=== PATIENT | female | born 1955 | race Caucasian/White ===

== ENCOUNTER 2018-01-22 06:26 | Day surgery (SDC) | payer BC ==
[2018-01-21 11:08] VITALS: BMI 23.5
[~2018-01-22 06:26] MED LIST: EPINEPHrine 0.3 MG in Ophthalmic Irrigation Solution 500 ML FS SCH
[2018-01-22] MEDS ORDERED: Cyclopentolate 1% Opth Drop 2 ML BOT ONE (06:45)
[2018-01-22] MEDS ORDERED: Phenylephrine 2.5% Ophth Soln 5 ML BOT ONE (06:45)
[2018-01-22] MEDS ORDERED: Fentanyl 100 MCG/2 ML VIAL ONE (08:00)
[2018-01-22] MEDS ORDERED: PROPOFOL 20 ML ONE (08:00)
[2018-01-22] MEDS ORDERED: Midazolam HCl 2 mg/2 ml Vial ONE (08:00)
[2018-01-22] MEDS ORDERED: Acetaminophen 500 MG TAB ONE (09:22)
[2018-01-22] MEDS ORDERED: Bupivacaine 0.75% 10 ML AMP ONE (11:49)
[2018-01-22] MEDS ORDERED: Lidocaine 4% PF 5 ML AMP ONE (11:49)
[2018-01-22] MEDS ORDERED: Triamcinolone 40 MG/ML VIAL ONE (11:49)
[2018-01-22] MEDS ORDERED: Maxitrol 0.1% Opth Oint 3.5 GM TUBE ONE (11:49)
[2018-01-22] MEDS ORDERED: CEFAZOLIN 1 GM VIAL ONE (11:49)
[2018-01-22] MEDS ORDERED: PROPOFOL 200 MG/20 ML VIAL ONE (11:49)
[2018-01-22] MEDS ORDERED: Lidocaine 1% PF 5 ML VIAL ONE ×2 (11:49)
--- NOTE | 2018-01-23 14:30 | OP ---
DATE OF PROCEDURE: 01/22/2018 PREOPERATIVE DIAGNOSIS: Vitreous opacification of right eye. POSTOPERATIVE DIAGNOSIS: Vitreous opacification of right eye. PROCEDURE PERFORMED: Pars plana vitrectomy, membrane peel, right eye. ANESTHESIA: Local monitored anesthesia care. PROCEDURE IN DETAIL: The patient was identified in the preoperative holding area and informed consent for planned surgical procedure on the right eye have been obtained. The patient was transported to the operative suite where appropriate cardiopulmonary monitoring was established. Local anesthesia was obtained using retrobulbar and modified Van Lint lid block using 50:50 mixture of 1% Lidocaine and 0.75% bupivacaine. The patient was prepped and draped in the usual sterile manner for ophthalmic surgery, right eye. Lid speculum was placed in the right eye. The 25-gauge trocars was placed inferotemporally and superonasally. A 25 gauge sclerotomy was created superotemporally. Infusion line was placed inferotemporally and silicone oil was removed. A 25 gauge needle was bent and posterior capsular opacification was dissected and peeled from the back surface of the lens. Sclerotomy was sutured closed with 7-0 Vicryl suture. Conjunctiva was closed with 6-0 plain gut suture. Retrobulbar Kenalog and subjunctival Ancef were placed. Atropine and antibiotic ointment was placed, and the eye was patched and shielded. The patient was taken to the postoperative recovery unit in good condition having suffered no immediate perioperative complications. The patient was instructed to keep patch and eye shield on and avoid lifting or bending, and follow up in the morning with Dr. Garcia. Job ID: [id number] MTDD
== END 2018-01-22 09:40 | disposition home or self-care (01) ==
LOC: SDC 06:26
PROVIDERS: ATTEND Ophthalmology Retina Specialist
DX: H43.311 Vitreous membranes and strands, right eye (principal); F41.9 Anxiety disorder, unspecified
CPT/HCPCS: J0171; J0690; J2001; J2250; J2704; J3010; J3301; J3490

== ENCOUNTER 2018-04-21 13:22 | Outpatient (CLI) | payer BC | END 2018-04-21 13:23 | disposition home or self-care (01) | LOC: BICMAMMO 13:22 | PROVIDERS: ATTEND Physician Assistant | DX: Z12.31 Encounter for screening mammogram for malignant neoplasm of breast (principal) | CPT/HCPCS: 77063; 77067 ==

== ENCOUNTER 2018-12-03 08:13 | Outpatient (CLI) | payer BC ==
--- NOTE | 2018-12-03 09:28 | ULT ---
Gallbladder ultrasound: Multiple grayscale images of right upper quadrant obtained according to protocol. INDICATION: Pain FINDINGS: Liver: Normal Gallbladder: Surgically absent Common bile duct is normal. Ascites: None Incidental note of multiple loops of traversing bowel of the right abdomen. This does produce shadowi ng, limiting visualization of this region. IMPRESSION: Surgical absence of gallbladder. Multiple loops of bowel of the right abdomen limiting dictation. Correlate clinically.
== END 2018-12-03 08:14 | disposition home or self-care (01) ==
LOC: BICULT 08:13
PROVIDERS: ATTEND Physician Assistant
DX: R10.11 Right upper quadrant pain (principal); Z90.49 Acquired absence of other specified parts of digestive tract
CPT/HCPCS: 76705

== ENCOUNTER 2023-03-26 09:31 | Outpatient (CLI) | payer BC | END 2023-03-26 09:32 | disposition home or self-care (01) | LOC: BICMAMMO 09:31 | PROVIDERS: ATTEND Physician Assistant | DX: Z12.31 Encounter for screening mammogram for malignant neoplasm of breast (principal); Z91.89 Other specified personal risk factors, not elsewhere classified | CPT/HCPCS: 77063; 77067 ==